=== PATIENT | female | born 1985 | race Caucasian/White ===

== ENCOUNTER 2017-04-10 20:26 | Emergency (ER) | payer OTHER ==
[~2017-04-10] VITALS: Ht 160 cm; Wt 115.7 kg
[2017-04-10 21:12] LABS: BILIRUBIN,URINE NEGATIVE (NEG); GLUCOSE,URINE NEGATIVE (NEG); NITRITE,URINE NEGATIVE (NEG); PH,URINE 6.5; PROTEIN,URINE NEGATIVE (NEG-TRACE); UROBILINOGEN,URINE 0.2 mg/dL (0.2 mg/dL)
[2017-04-10 21:22] LABS: BACTERIA,URINE FEW /HPF (0-FEW); RBC,URINE 0 /HPF (0-2); SQUAMOUS EPITHELIAL CELL,UR FEW /LPF; WBC,URINE OCC /HPF (0-4)
[2017-04-10 21:22] LABS: BASO # 0.1 x10^3/uL (0.0-0.2); BASO % 1 % (0-3); EOS % 4 % (0-3); HEMATOCRIT 41.9 % (36.0-47.0); HEMOGLOBIN 14.3 g/dL (12.0-15.5); LYMPH # 2.7 x10^3/uL (1.0-4.8); LYMPH % 29 % (24-48); MEAN CORPUSCULAR HEMOGLOBIN 29 pg (25-35); MEAN CORPUSCULAR HGB CONC 34 g/dL (31-37); MEAN CORPUSCULAR VOLUME 85 fL (79-100); MONO % 6 % (0-9); NEUT % 60 % (31-73); PLATELET COUNT 239 x10^3/uL (140-400); RED BLOOD COUNT 4.93 x10^6/uL (3.50-5.40); RED CELL DISTRIBUTION WIDTH 14.4 % (11.5-14.5); WHITE BLOOD COUNT 9.3 x10^3/uL (4.0-11.0)
[2017-04-10 21:26] LABS: CALCIUM 9.3 mg/dL (8.5-10.1); CREATININE 0.8 mg/dL (0.6-1.0); GFR 84.8; POTASSIUM 4.1 mmol/L (3.5-5.1)
[2017-04-10] MEDS ORDERED: IV NORMAL SALINE 1000ML BAG 1,000 ML IV ONE (21:30)
[2017-04-10] MEDS ORDERED: ONDANSETRON PF 4 MG/2 ML VIAL. IV ONE (21:30)
[2017-04-10] MEDS ORDERED: diphenhydrAMINE 50 MG/ML VIAL IVP ONE (21:30)
[2017-04-10] MEDS ORDERED: KETOROLAC 15 MG/ML VIAL. IV ONE (21:30)
[2017-04-10 21:31] LABS: ALBUMIN 3.6 g/dL (3.4-5.0); ALBUMIN/GLOBULIN RATIO 0.9 (1.0-1.7); TOTAL BILIRUBIN 0.3 mg/dL (0.2-1.0); TOTAL PROTEIN 7.7 g/dL (6.4-8.2)
[2017-04-10 21:35] LABS: NEG OBC UR NEG; POS OBC UR POS
--- NOTE | 2017-04-10 21:46 | RAD ---
Clinical Indication: Headache Technique: Study is dated April 10, 2017. CT images of the head were obtained from the skull base to the vertex without IV contrast. There are no comparison studies available. One or more of the following individualized dose reduction techniques were utilized for this examination: 1. Automated exposure control 2. Adjustment of the mA and/or kV according to patient size 3. Use of iterative reconstruction technique Findings: The ventricles are normal in size and configuration. There is no hemorrhage, extraaxial collection, mass, or midline shift. There is no large vascular distribution acute infarct. The posterior fossa and brainstem are unremarkable. Orbits are normal. The included paranasal sinuses and mastoid air cells are clear. There is no skull fracture appreciated on bone level images. Impression: No acute intracranial findings. Electronically signed by: Rylan Israel MD (04/10/2017 9:43 PM) [facility]
--- NOTE | 2017-04-10 22:29 | PHYS DOC ---
Past Medical History Past Medical History: Asthma, Other Additional Past Medical Histor: PCS, PTSD, Scoliosism tachycardia during Past Surgical History: Cholecystectomy, , Hysterectomy, Tubal ligation Additional Past Surgical Histo: Partial hysterectomy Alcohol Use: Rarely Drug Use: None Adult General Chief Complaint Chief Complaint: HEADACHE HPI HPI Patient is a 31 year old female who presents to the ER today complaining of a migraine headache. Patient reports she's had one to 2 migraines in the past that she had to come to the hospital for but is never had a CT scan of her head. Patient denies any fevers shakes chills. Patient has any vomiting or diarrhea. Patient reports she is nauseous with a headache. She reports that the headache started earlier today. Patient has any double vision, blurred vision, weakness to her upper or lower extremities, slurring her speech, facial asymmetry. Patient denies any history of hypertension diabetes liver or kidney pals. Patient has had a cholecystectomy, 2, total abdominal hysterectomy. Patient reports she does have a history of asthma and polycystic ovary syndrome. Patient denies any tobacco alcohol or drugs. Patient is allergic to Phenergan. Patient reports that with her migraines she usually takes a he pack to her eyes and ibuprofen as well as Benadryl and usually alleviates her headache however today she tried that without any relief. Review of systems: Constitutional: Denies fever or chills Eyes: Denies change in visual acuity, redness, or eye pain HENT: Denies nasal congestion or sore throat All other review systems are negative except as documented in the history of present illness. Physical exam: Constitutional: Well developed, well nourished, no acute distress, non-toxic appearance. HENT: Normocephalic, atraumatic, bilateral external ears normal, oropharynx moist, no oral exudates, nose normal. Eyes: PERRLA, EOMI, conjunctiva normal, no discharge. Neck: Normal range of motion, no tenderness, supple, no stridor. Patient denies any signs or symptoms O be consistent with meningitis. Cardiovascular:Heart rate regular rhythm, Lungs & Thorax: Bilateral breath sounds clear to auscultation Abdomen: Bowel sounds normal, soft, no tenderness, no masses, no pulsatile masses. Skin: Warm, dry, no erythema, no rash. Back: No tenderness, no CVA tenderness. Extremities: No tenderness, no cyanosis, no clubbing, ROM intact, no edema. Neurologic: Alert and oriented X 3, normal motor function, normal sensory function, no focal deficits noted. Psychologic: Affect normal, judgement normal, mood normal. Assessment and plan. This is a 31-year-old female who presents here today with a migraine headache. Patient's ER workup is been unremarkable. Patient has CT scan of her head since she has never had one before CT scan was read by radiology as no acute disease or process. Patient was given a liter of normal saline as well as Zofran Benadryl and Toradol without any significant improvement. Patient was then given a milligram of Dilaudid IV and she reports the pain is significantly improved. Patient's labs were all within normal limits. Given that the patient' s labs are unremarkable, normal CT and her pain is improved will be discharged home in stable condition and will be instructed to follow-up with her primary care physician for further management of her headaches. Current Medications Current Medications Current Medications Medications (Trade) Dose Ordered Sig/Dario Start Time Stop Time Status Last Admin Dose Admin Diphenhydramine HCl (Benadryl) 50 mg 1X ONCE 04/10/17 21:30 04/10/17 21:31 DC 04/10/17 21:12 50 MG Hydromorphone HCl (Dilaudid) 1 mg 1X ONCE 04/10/17 22:30 04/10/17 22:31 04/10/17 22:00 1 MG Ketorolac Tromethamine (Toradol) 15 mg 1X ONCE 04/10/17 21:30 04/10/17 21:31 DC 04/10/17 21:12 15 MG Ondansetron HCl (Zofran) 4 mg 1X ONCE 04/10/17 21:30 04/10/17 21:31 DC 04/10/17 21:12 4 MG Sodium Chloride 1,000 ml @ 1,000 mls/hr 1X ONCE 04/10/17 21:30 04/10/17 22:29 04/10/17 21:17 1,000 MLS/HR Allergies Allergies Allergies Coded Allergies Type Severity Reaction Last Updated Verified nut - unspecified Allergy Severe 04/10/17 Yes promethazine Allergy Severe 04/10/17 Yes Current Patient Data Vital Signs Vital Signs Date Time Temp Pulse Resp B/P (MAP) Pulse Ox O2 Delivery O2 Flow Rate FiO2 04/10/17 22:00 16 Room Air 04/10/17 21:18 84 143/78 (99) 99 04/10/17 20:41 98.3 98.3 Lab Values Laboratory Tests Test 04/10/17 20:39 04/10/17 21:08 Urine Collection Type Unknown Urine Color Yellow Urine Clarity Clear Urine pH 6.5 Urine Specific [place] 1.010 Urine Protein Negative mg/dL (NEG-TRACE) Urine Glucose (UA) Negative mg/dL (NEG) Urine Ketones (Stick) Negative mg/dL (NEG) Urine Blood Negative (NEG) Urine Nitrite Negative (NEG) Urine Bilirubin Negative (NEG) Urine Urobilinogen Dipstick 0.2 mg/dL (0.2 mg/dL) Urine Leukocyte Esterase Negative (NEG) Urine RBC 0 /HPF (0-2) Urine WBC Occ /HPF (0-4) Urine Squamous Epithelial Cells Few /LPF Urine Bacteria Few /HPF (0-FEW) Urine Test Negative (NEG) White Blood Count 9.3 x10^3/uL (4.0-11.0) Red Blood Count 4.93 x10^6/uL (3.50-5.40) Hemoglobin 14.3 g/dL (12.0-15.5) Hematocrit 41.9 % (36.0-47.0) Mean Corpuscular Volume 85 fL (79-100) Mean Corpuscular Hemoglobin 29 pg (25-35) Mean Corpuscular Hemoglobin Concent 34 g/dL (31-37) Red Cell Distribution Width 14.4 % (11.5-14.5) Platelet Count 239 x10^3/uL (140-400) Neutrophils (%) (Auto) 60 % (31-73) Lymphocytes (%) (Auto) 29 % (24-48) Monocytes (%) (Auto) 6 % (0-9) Eosinophils (%) (Auto) 4 % (0-3) H Basophils (%) (Auto) 1 % (0-3) Neutrophils # (Auto) 5.6 x10^3uL (1.8-7.7) Lymphocytes # (Auto) 2.7 x10^3/uL (1.0-4.8) Monocytes # (Auto) 0.5 x10^3/uL (0.0-1.1) Eosinophils # (Auto) 0.4 x10^3/uL (0.0-0.7) Basophils # (Auto) 0.1 x10^3/uL (0.0-0.2) Sodium Level 140 mmol/L (136-145) Potassium Level 4.1 mmol/L (3.5-5.1) Chloride Level 104 mmol/L (98-107) Carbon Dioxide Level 28 mmol/L (21-32) Anion Gap 8 (6-14) Blood Urea Nitrogen 11 mg/dL (7-20) Creatinine 0.8 mg/dL (0.6-1.0) Estimated GFR (Cockcroft-Gault) 84.8 BUN/Creatinine Ratio 14 (6-20) Glucose Level 106 mg/dL (70-99) H Calcium Level 9.3 mg/dL (8.5-10.1) Total Bilirubin 0.3 mg/dL (0.2-1.0) Aspartate Amino Transferase (AST) 14 U/L (15-37) L Alanine Aminotransferase (ALT) 25 U/L (14-59) Alkaline Phosphatase 81 U/L (46-116) Total Protein 7.7 g/dL (6.4-8.2) Albumin 3.6 g/dL (3.4-5.0) Albumin/Globulin Ratio 0.9 (1.0-1.7) L Laboratory Tests 04/10/17 21:08 Laboratory Tests 04/10/17 21:08 EKG EKG [] Radiology/Procedures Radiology/Procedures [] Course & Med Decision Making Course & Med Decision Making Pertinent Labs and Imaging studies reviewed. (See chart for details) [] Dragon Disclaimer Dragon Disclaimer This electronic medical record was generated, in whole or in part, using a voice recognition dictation system. Departure Departure Impression: Primary Impression: Migraine headache Disposition: 01 HOME, SELF-CARE Condition: IMPROVED Referrals: UNKNOWN PCP NAME (PCP) Patient Instructions: General Headache Without Cause Additional Instructions: You were seen in the ER today for your headache. Your workup in ER has been unremarkable. Please make an appointment to follow-up with her doctor within 1- 2 days for reevaluation if her headache is persistent. FAITH LYNN MD Apr 10, 2017 22:29
[2017-04-10] MEDS ORDERED: HYDROmorphone 2 MG/ML VIAL IV ONE (22:30)
[2017-04-10 22:38] VITALS: BP 113/51
== END 2017-04-10 22:39 | disposition home or self-care (01) ==
LOC: ER 20:26
DX: G43.909 Migraine, unspecified, not intractable, without status migrainosus (principal); J45.909 Unspecified asthma, uncomplicated; F43.10 Post-traumatic stress disorder, unspecified; Z91.018 Allergy to other foods; Z88.8 Allergy status to other drugs, medicaments and biological substances
CPT/HCPCS: 36415; 70450; 80053; 81001; 81025; 85025; 96361; 96374; 96375; 99285; J1170; J1200; J1885; J2405; J7030

== ENCOUNTER 2017-04-23 11:06 | Emergency (ER) | payer OTHER ==
[~2017-04-23] VITALS: Ht 152.4 cm; Wt 115.7 kg
--- NOTE | 2017-04-23 11:41 | PHYS DOC ---
Past Medical History Past Medical History: Asthma, Other Additional Past Medical Histor: PCS, PTSD, Scoliosism tachycardia during Past Surgical History: Cholecystectomy, , Hysterectomy, Tubal ligation Additional Past Surgical Histo: Partial hysterectomy Alcohol Use: Rarely Drug Use: None Adult General Chief Complaint Chief Complaint: HEADACHE HPI HPI Patient is a 31 year old female presents to the emergency department stating that she was seen here on 04/10 for migraine headache in which she was provided with Dilaudid for her headache. Patient states that she followed up with her primary care physician yesterday and was provided with Imitrex. She states that she's been taking the Imitrex as prescribed. Patient states there is been no relief of her headache. Patient states that she has had some blurred vision with nausea denies any vomiting. She states that her neck is stiff however she is able to move it in all directions. She denies any fever or chills. Patient states that when she does try to move her head and tender head down she feels as though it's pointing on the left side of her upper back and neck area. She denies any injury or trauma. She does state that she has photophobia. Review of Systems Review of Systems Constitutional: Denies fever or chills [] Eyes: Denies change in visual acuity, redness, or eye pain [] HENT: Denies nasal congestion or sore throat [] Respiratory: Denies cough or shortness of breath [] Cardiovascular: No additional information not addressed in HPI [] GI: Denies abdominal pain, nausea, vomiting, bloody stools or diarrhea [] : Denies dysuria or hematuria [] Musculoskeletal: Denies back pain or joint pain [] Integument: Denies rash or skin lesions [] Neurologic: headache, denies focal weakness or sensory changes [] Endocrine: Denies polyuria or polydipsia [] Current Medications Current Medications Current Medications Medications (Trade) Dose Ordered Sig/Dario Start Time Stop Time Status Last Admin Dose Admin Cyclobenzaprine HCl (Flexeril) 10 mg 1X ONCE 04/23/17 11:45 04/23/17 11:46 DC 04/23/17 12:03 10 MG Diphenhydramine HCl (Benadryl) 25 mg 1X ONCE 04/23/17 11:45 04/23/17 11:46 DC 04/23/17 12:04 25 MG Ketorolac Tromethamine (Toradol) 30 mg 1X ONCE 04/23/17 11:45 04/23/17 11:46 DC 04/23/17 12:02 30 MG Metoclopramide HCl (Reglan) 10 mg 1X ONCE 04/23/17 11:45 04/23/17 11:46 DC 04/23/17 12:03 10 MG Allergies Allergies Allergies Coded Allergies Type Severity Reaction Last Updated Verified nut - unspecified Allergy Severe 04/10/17 Yes promethazine Allergy Severe 04/10/17 Yes Physical Exam Physical Exam Constitutional: Well developed, well nourished, no acute distress, non-toxic appearance. [] HENT: Normocephalic, atraumatic, bilateral external ears normal, oropharynx moist, no oral exudates, nose normal. [] Eyes: PERRLA, EOMI, conjunctiva normal, no discharge. [] Neck: Normal range of motion, no tenderness, supple, no stridor. [] Cardiovascular:Heart rate regular rhythm, no murmur [] Lungs & Thorax: Bilateral breath sounds clear to auscultation [] Skin: Warm, dry, no erythema, no rash. [] Back: Tenderness noted on the left side of the neck and upper back area. Extremities: No tenderness, no cyanosis, no clubbing, ROM intact, no edema. [] Neurologic: Alert and oriented X 3, normal motor function, normal sensory function, no focal deficits noted. Patient is able to bend her head down and turned her head from left to right in move her head backwards with minimal discomfort noted. Stroke scale 0. Patient with equal launch operator bilaterally with equal strength noted. Psychologic: Affect normal, judgement normal, mood normal. [] Current Patient Data Vital Signs Vital Signs Date Time Temp Pulse Resp B/P (MAP) Pulse Ox O2 Delivery O2 Flow Rate FiO2 04/23/17 11:17 98.1 95 18 121/85 (97) 99 Room Air 98.1 Lab Values Laboratory Tests Test 04/23/17 11:55 White Blood Count 8.1 x10^3/uL (4.0-11.0) Red Blood Count 5.02 x10^6/uL (3.50-5.40) Hemoglobin 14.4 g/dL (12.0-15.5) Hematocrit 43.2 % (36.0-47.0) Mean Corpuscular Volume 86 fL (79-100) Mean Corpuscular Hemoglobin 29 pg (25-35) Mean Corpuscular Hemoglobin Concent 33 g/dL (31-37) Red Cell Distribution Width 14.3 % (11.5-14.5) Platelet Count 220 x10^3/uL (140-400) Neutrophils (%) (Auto) 62 % (31-73) Lymphocytes (%) (Auto) 24 % (24-48) Monocytes (%) (Auto) 6 % (0-9) Eosinophils (%) (Auto) 8 % (0-3) H Basophils (%) (Auto) 1 % (0-3) Neutrophils # (Auto) 5.0 x10^3uL (1.8-7.7) Lymphocytes # (Auto) 1.9 x10^3/uL (1.0-4.8) Monocytes # (Auto) 0.5 x10^3/uL (0.0-1.1) Eosinophils # (Auto) 0.6 x10^3/uL (0.0-0.7) Basophils # (Auto) 0.1 x10^3/uL (0.0-0.2) Sodium Level 141 mmol/L (136-145) Potassium Level 4.0 mmol/L (3.5-5.1) Chloride Level 103 mmol/L (98-107) Carbon Dioxide Level 29 mmol/L (21-32) Anion Gap 9 (6-14) Blood Urea Nitrogen 11 mg/dL (7-20) Creatinine 0.9 mg/dL (0.6-1.0) Estimated GFR (Cockcroft-Gault) 74.0 BUN/Creatinine Ratio 12 (6-20) Glucose Level 89 mg/dL (70-99) Calcium Level 9.3 mg/dL (8.5-10.1) Total Bilirubin 0.5 mg/dL (0.2-1.0) Aspartate Amino Transferase (AST) 16 U/L (15-37) Alanine Aminotransferase (ALT) 31 U/L (14-59) Alkaline Phosphatase 93 U/L (46-116) Total Protein 8.1 g/dL (6.4-8.2) Albumin 3.9 g/dL (3.4-5.0) Albumin/Globulin Ratio 0.9 (1.0-1.7) L Laboratory Tests 04/23/17 11:55 Laboratory Tests 04/23/17 11:55 EKG EKG [] Radiology/Procedures Radiology/Procedures [][facility] [address] [place] [address] IMAGING REPORT Signed PATIENT: DEISY CANDELARIO ACCOUNT: [id number] : 1985 LOCATION: ER AGE: 31 SEX: F EXAM STATUS: REG ER ORD. PHYSICIAN: NARCISA PHAN APRN REASON: head ache, some blurred vision PROCEDURE: CT HEAD WO CONTRAST CT of the head without contrast, 04/23/2017: History: Headache Comparison is made to a study from 04/10/2017. The ventricles are within normal limits in size. There is no shift of the midline structures. There is no evidence of acute intracranial hemorrhage or mass effect. Mucosal thickening in the sphenoid sinuses has worsened with nearly complete opacification of the right sphenoid sinus. There is mucosal thickening and fluid in both maxillary sinuses. There is now mild mucosal thickening in both ethmoid sinuses and the right frontal sinus. IMPRESSION: 1. No acute intracranial abnormality is detected. 2. Moderate bilateral paranasal sinusitis has developed. PQRS Compliance Statement: One or more of the following individualized dose reduction techniques were utilized for this examination: 1. Automated exposure control 2. Adjustment of the mA and/or kV according to patient size 3. Use of iterative reconstruction technique DICTATED and SIGNED BY: JACI VICTOR MD DATE: 04/23/17 1201 CC: NARCISA PHAN APRN; NON,STAFF; UNKNOWN PCP NAME ~ Course & Med Decision Making Course & Med Decision Making Pertinent Labs and Imaging studies reviewed. (See chart for details) CT scan of the head will be repeated as this headache appears to be different than the one she had on the previous visit, patient will have a CBC, CMP obtained. She'll be provided with IV medications such as Toradol, Reglan, Benadryl, and by mouth medication Flexeril. 1256 CT scan of the head was negative CBC, CMP was negative. Patient states that her headache is better. She'll be discharged home with a prescription for Flexeril with recommendations that this medication will cause drowsiness don't take any be alert and oriented. Recommended that she rest in quiet dark cool environment to help with her headache. Recommended avoiding watching TV, computer devices or any type of laptop devices as well. Patient will be discharged home in stable condition signs and symptoms to return back to emergency department has been provided. All questions and concerns been answered at patient's bedside. [] Dragon Disclaimer Dragon Disclaimer This electronic medical record was generated, in whole or in part, using a voice recognition dictation system. Departure Departure Impression: Primary Impression: Headache, tension-type Disposition: HOME, SELF-CARE Condition: STABLE Referrals: UNKNOWN PCP NAME (PCP) Patient Instructions: Tension Headache, [id number] Additional Instructions: Activity as tolerated. Avoid watching TV or using any laptop computer devices this would include text messaging or use of cell phone's. Rest in a quiet dark environment. Medications as prescribed. Flexeril will cause drowsiness do not take any be alert and oriented. Follow-up to primary care physician in the next 5-7 days. Return back to emergency prior signs symptoms of become worse. Scripts Cyclobenzaprine Hcl (CYCLOBENZAPRINE HCL) 10 Mg Tablet 1 TAB PO TID Y for MUSCLE SPASMS, #30 TAB Prov: NARCISA PHAN APRN 04/23/17 Problem Qualifiers Primary Impression: Headache, tension-type Headache chronicity pattern: unspecified pattern NARCISA PHAN APRN Apr 23, 2017 11:41
[2017-04-23] MEDS ORDERED: diphenhydrAMINE 50 MG/ML VIAL IVP ONE (11:45)
[2017-04-23] MEDS ORDERED: CYCLOBENZAPRINE 10 MG TABLET. PO ONE (11:45)
[2017-04-23] MEDS ORDERED: KETOROLAC 30 MG/ML INJ. IV ONE (11:45)
[2017-04-23] MEDS ORDERED: METOCLOPRAMIDE HCL 10 MG/2 ML VIAL. IV ONE (11:45)
--- NOTE | 2017-04-23 12:05 | RAD ---
CT of the head without contrast, 04/23/2017: History: Headache Comparison is made to a study from 04/10/2017. The ventricles are within normal limits in size. There is no shift of the midline structures. There is no evidence of acute intracranial hemorrhage or mass effect. Mucosal thickening in the sphenoid sinuses has worsened with nearly complete opacification of the right sphenoid sinus. There is mucosal thickening and fluid in both maxillary sinuses. There is now mild mucosal thickening in both ethmoid sinuses and the right frontal sinus. IMPRESSION: 1. No acute intracranial abnormality is detected. 2. Moderate bilateral paranasal sinusitis has developed. PQRS Compliance Statement: One or more of the following individualized dose reduction techniques were utilized for this examination: 1. Automated exposure control 2. Adjustment of the mA and/or kV according to patient size 3. Use of iterative reconstruction technique
[2017-04-23 12:12] LABS: BASO # 0.1 x10^3/uL (0.0-0.2); BASO % 1 % (0-3); EOS % 8 % (0-3); HEMATOCRIT 43.2 % (36.0-47.0); HEMOGLOBIN 14.4 g/dL (12.0-15.5); LYMPH # 1.9 x10^3/uL (1.0-4.8); LYMPH % 24 % (24-48); MEAN CORPUSCULAR HEMOGLOBIN 29 pg (25-35); MEAN CORPUSCULAR HGB CONC 33 g/dL (31-37); MEAN CORPUSCULAR VOLUME 86 fL (79-100); MONO % 6 % (0-9); NEUT % 62 % (31-73); PLATELET COUNT 220 x10^3/uL (140-400); RED BLOOD COUNT 5.02 x10^6/uL (3.50-5.40); RED CELL DISTRIBUTION WIDTH 14.3 % (11.5-14.5); WHITE BLOOD COUNT 8.1 x10^3/uL (4.0-11.0)
[2017-04-23 12:16] LABS: CALCIUM 9.3 mg/dL (8.5-10.1); CREATININE 0.9 mg/dL (0.6-1.0)
[2017-04-23 12:22] LABS: ALBUMIN 3.9 g/dL (3.4-5.0); ALBUMIN/GLOBULIN RATIO 0.9 (1.0-1.7); TOTAL BILIRUBIN 0.5 mg/dL (0.2-1.0); TOTAL PROTEIN 8.1 g/dL (6.4-8.2)
[2017-04-23] MEDS ORDERED: CYCL10TA2 PO (12:59)
[2017-04-23 13:00] VITALS: BP 89/51
== END 2017-04-23 13:05 | disposition home or self-care (01) ==
LOC: ER 11:06
DX: G44.209 Tension-type headache, unspecified, not intractable (principal); G43.909 Migraine, unspecified, not intractable, without status migrainosus; F43.10 Post-traumatic stress disorder, unspecified; J45.909 Unspecified asthma, uncomplicated; E28.2 Polycystic ovarian syndrome; Z88.8 Allergy status to other drugs, medicaments and biological substances; Z91.018 Allergy to other foods
CPT/HCPCS: 36415; 70450; 80053; 85025; 96374; 96375; 99285; J1200; J1885; J2765

== ENCOUNTER 2017-08-12 03:42 | Emergency (ER) | payer OTHER ==
[2017-08-12] MEDS: TOBRAMYCIN 0.3% OPHTH SOLUTION 5ML BOTTLE. OU ×2 (04:17)
[2017-08-12] MEDS: KETOROLAC 60 MG/2 ML INJ. IM ×2 (04:17)
== END 2017-08-12 04:21 | disposition home or self-care (01) ==
LOC: ER 03:42
DX: H10.33 Unspecified acute conjunctivitis, bilateral (principal); G43.009 Migraine without aura, not intractable, without status migrainosus; J45.909 Unspecified asthma, uncomplicated; F43.10 Post-traumatic stress disorder, unspecified; Z88.8 Allergy status to other drugs, medicaments and biological substances; Z91.018 Allergy to other foods
CPT/HCPCS: 96372; 99283-25; J1885

== ENCOUNTER 2018-01-22 15:45 | Emergency (ER) | payer OTHER ==
[2018-01-22] MEDS: KETOROLAC 60 MG/2 ML INJ. IM (16:25)
[2018-01-22] MEDS: oxyCODONE IR 5 MG TABLET PO (16:25)
[2018-01-22] MEDS: BACLOFEN 10 MG TABLET. PO (16:25)
== END 2018-01-22 17:06 | disposition home or self-care (01) ==
LOC: ER 15:45
DX: M54.5 Low back pain (principal); M54.6 Pain in thoracic spine; J45.909 Unspecified asthma, uncomplicated; F43.10 Post-traumatic stress disorder, unspecified; Z98.51 Tubal ligation status; Z90.49 Acquired absence of other specified parts of digestive tract; Z90.711 Acquired absence of uterus with remaining cervical stump; Z88.5 Allergy status to narcotic agent; Z88.8 Allergy status to other drugs, medicaments and biological substances; Z91.018 Allergy to other foods
CPT/HCPCS: 72100; 96372; 99284-25; J1885

== ENCOUNTER 2018-04-08 18:31 | Emergency (ER) | payer OTHER ==
[~2018-04-08] VITALS: Ht 160 cm; Wt 81.6 kg
[~2018-04-08 18:31] MED LIST: BACL20TA PO; CYCL10TA2 PO; ONDA4TAB10 PO; OXYC5CAP PO
[2018-04-08 18:36] VITALS: BP 117/72
[2018-04-08] MEDS ORDERED: IV NORMAL SALINE 1000ML BAG 1,000 ML IV ONE (19:00)
--- NOTE | 2018-04-08 19:09 | PHYS DOC ---
Past Medical History Past Medical History: Asthma, Other Additional Past Medical Histor: PCOS, PTSD, Scoliosis, tachycardia during Past Surgical History: Cholecystectomy, , Tubal ligation Additional Past Surgical Histo: Right Salphin-oophorectomy Alcohol Use: Rarely Drug Use: None Adult General Chief Complaint Chief Complaint: SEIZURE HPI HPI 32-year-old female presents via EMS with report of seizure-like activity which occurred just prior to arrival. Patient remembers she was sitting on the couch at her home with children getting ready to eat. Subsequently remembers waking up again on the couch with the paramedics around her. Denies loss of bowel/ bladder. Patient does report a previous episode when she was 18 which was allegedly secondary to accidentally combining to different types of medication including Tylenol #3 and Phenergan. Recent denies any new medications. Denies trauma. Denies fever or chills. Patient does report a headache primarily to the left frontal region. Patient denies . Reports menstrual period on 2017. Patient also has a history of right-sided oophorectomy and also a prior tubal ligation. Denies drug or alcohol abuse. Review of Systems Review of Systems Constitutional: Denies fever or chills; reports generalized malaise Eyes: Denies change in visual acuity, redness, or eye pain [] HENT: Denies nasal congestion or sore throat [] Respiratory: Denies cough or shortness of breath [] Cardiovascular: Denies chest pain or palpitations GI: Denies abdominal pain, nausea, vomiting, or diarrhea [] : Denies dysuria or hematuria [] Musculoskeletal: Denies back pain or joint pain [] Integument: Denies rash or skin lesions [] Neurologic: Denies headache, focal weakness or sensory changes [] Complete systems were reviewed and found to be within normal limits, except as documented in this note. Current Medications Current Medications Current Medications Medications (Trade) Dose Ordered Sig/Dario Start Time Stop Time Status Last Admin Dose Admin Acetaminophen/ Butalbital/ Caffeine (Fioricet) 2 tab 1X ONCE 04/08/18 22:00 04/08/18 22:01 DC 04/08/18 21:42 2 TAB Dexamethasone Sodium Phosphate (Decadron) 10 mg 1X ONCE 04/08/18 19:00 04/08/18 19:01 DC 04/08/18 20:10 10 MG Diphenhydramine HCl (Benadryl) 25 mg 1X ONCE 04/08/18 19:00 04/08/18 19:01 DC 04/08/18 20:11 25 MG Ketorolac Tromethamine (Toradol 15mg Vial) 15 mg 1X ONCE 04/08/18 22:00 04/08/18 22:01 DC 04/08/18 21:45 15 MG Ondansetron HCl (Zofran) 4 mg 1X ONCE 04/08/18 19:00 04/08/18 19:01 DC 04/08/18 20:10 4 MG Sodium Chloride 1,000 ml @ 1,000 mls/hr 1X ONCE 04/08/18 19:00 04/08/18 19:59 Cancel Allergies Allergies Allergies Coded Allergies Type Severity Reaction Last Updated Verified nut - unspecified Allergy Severe 04/10/17 Yes promethazine Allergy Severe 04/10/17 Yes morphine Allergy Intermediate 04/08/18 Yes Physical Exam Physical Exam Constitutional: Well developed, well nourished, no acute distress, non-toxic appearance. [] HENT: Normocephalic, atraumatic, oropharynx moist, no tongue abnormalities noted Eyes: PERRL, EOMI, conjunctiva normal, no discharge. [] Neck: Normal range of motion, no midline tenderness, supple, no meningeal signs Cardiovascular: Heart rate tachycardic, no murmur [] Lungs & Thorax: Bilateral breath sounds clear to auscultation; no wheezes or rails Abdomen: Soft, no tenderness Skin: Warm, dry, no erythema, no rash. [] Extremities: No tenderness, ROM intact, no edema. [] Neurologic: Alert and oriented X 3, normal motor function, normal sensory function, no focal deficits noted, cerebellar function intact Psychologic: Affect normal, judgement normal, mood normal. [] Current Patient Data Vital Signs Vital Signs Date Time Temp Pulse Resp B/P (MAP) Pulse Ox O2 Delivery O2 Flow Rate FiO2 04/08/18 18:36 98.7 108 16 117/72 (87) 99 Room Air 98.7 Lab Values Laboratory Tests Test 04/08/18 18:35 04/08/18 18:37 04/08/18 19:25 04/08/18 19:30 Lactic Acid Level 1.9 mmol/L (0.4-2.0) White Blood Count 6.1 x10^3/uL (4.0-11.0) Red Blood Count 3.93 x10^6/uL (3.50-5.40) Hemoglobin 12.1 g/dL (12.0-15.5) Hematocrit 35.6 % (36.0-47.0) L Mean Corpuscular Volume 91 fL (79-100) Mean Corpuscular Hemoglobin 31 pg (25-35) Mean Corpuscular Hemoglobin Concent 34 g/dL (31-37) Red Cell Distribution Width 14.7 % (11.5-14.5) H Platelet Count 207 x10^3/uL (140-400) Neutrophils (%) (Auto) 57 % (31-73) Lymphocytes (%) (Auto) 31 % (24-48) Monocytes (%) (Auto) 8 % (0-9) Eosinophils (%) (Auto) 4 % (0-3) H Basophils (%) (Auto) 1 % (0-3) Neutrophils # (Auto) 3.5 x10^3uL (1.8-7.7) Lymphocytes # (Auto) 1.9 x10^3/uL (1.0-4.8) Monocytes # (Auto) 0.5 x10^3/uL (0.0-1.1) Eosinophils # (Auto) 0.2 x10^3/uL (0.0-0.7) Basophils # (Auto) 0.0 x10^3/uL (0.0-0.2) Sodium Level 142 mmol/L (136-145) Potassium Level 4.0 mmol/L (3.5-5.1) Chloride Level 105 mmol/L (98-107) Carbon Dioxide Level 25 mmol/L (21-32) Anion Gap 12 (6-14) Blood Urea Nitrogen 10 mg/dL (7-20) Creatinine 1.0 mg/dL (0.6-1.0) Estimated GFR (Cockcroft-Gault) 65.1 BUN/Creatinine Ratio 10 (6-20) Glucose Level 86 mg/dL (70-99) Calcium Level 8.7 mg/dL (8.5-10.1) Magnesium Level 2.1 mg/dL (1.8-2.4) Total Bilirubin 0.3 mg/dL (0.2-1.0) Aspartate Amino Transferase (AST) 16 U/L (15-37) Alanine Aminotransferase (ALT) 44 U/L (14-59) Alkaline Phosphatase 80 U/L (46-116) Total Protein 7.1 g/dL (6.4-8.2) Albumin 3.5 g/dL (3.4-5.0) Albumin/Globulin Ratio 1.0 (1.0-1.7) Ethyl Alcohol Level < 10 mg/dL (0-10) Urine Collection Type Unknown Urine Color Yellow Urine Clarity Clear Urine pH 6.0 Urine Specific [place] 1.015 Urine Protein Negative mg/dL (NEG-TRACE) Urine Glucose (UA) Negative mg/dL (NEG) Urine Ketones (Stick) Negative mg/dL (NEG) Urine Blood Negative (NEG) Urine Nitrite Negative (NEG) Urine Bilirubin Negative (NEG) Urine Urobilinogen Dipstick 1.0 mg/dL (0.2 mg/dL) Urine Leukocyte Esterase Small (NEG) Urine RBC 0 /HPF (0-2) Urine WBC 5-10 /HPF (0-4) Urine Squamous Epithelial Cells Many /LPF Urine Bacteria Many /HPF (0-FEW) Urine Mucus Marked /LPF Urine Opiates Screen Neg (NEG) Urine Methadone Screen Neg (NEG) Urine Barbiturates Neg (NEG) Urine Phencyclidine Screen Neg (NEG) Urine Amphetamine/Methamphetamine Neg (NEG) Urine Benzodiazepines Screen Pos (NEG) Urine Cocaine Screen Neg (NEG) Urine Cannabinoids Screen Neg (NEG) Urine Ethyl Alcohol Neg (NEG) POC Urine HCG, Qualitative Hcg negative (Negative) Laboratory Tests 04/08/18 18:37 Laboratory Tests 04/08/18 18:37 Microbiology 04/08/18 Urine Culture - Final, Complete 04/08/18 Urine Culture Result 1 (OVIDIO) - Final, Complete EKG EKG @1842 sinus tachycardia at 103bpm, No ST elevation, QRS 86ms, QT/QTc 344/453ms Radiology/Procedures Radiology/Procedures PROCEDURE: CT HEAD WO CONTRAST Exam performed: CT scan of the head without contrast. Date of Service: 04/08/18. Comparison: None available. Clinical History: Seizure like activity. Technique: Helical acquisitions are obtained from the foramen magnum to the vertex without intravenous administration of contrast. Findings: The ventricles are midline without evidence of dilatation. Normal pop-white differentiation is maintained. There is no extra axial fluid collection, intraparenchymal hemorrhage or mass lesion. The visualized portions of the orbits, paranasal sinuses and the mastoid air cells appear clear. The calvarium is intact. Impression: 1. No acute intracranial process detected. PQRS Compliance Statement: One or more of the following individualized dose reduction techniques were utilized for this examination: 1. Automated exposure control 2. Adjustment of the mA and/or kV according to patient size 3. Use of iterative reconstruction technique Electronically signed by: Adele Encinas MD (04/08/2018 8:58 PM) [facility] Course & Med Decision Making Course & Med Decision Making Pertinent Labs and Imaging studies reviewed. (See chart for details) Patient presents with history of present illness concerning for possible seizure -like activity. Patient currently neurologically intact. No loss of bladder reported. Patient reportedly was slightly confused upon EMS arrival. Physical exam unremarkable. No tongue wounds noted. Patient neurologically intact. Labs obtained and posted to chart. EKG stable. CT head without acute process. Headache addressed. IVF hydration given,. Patient stable for discharge with outpatient follow-up with PCP/neurologist. Neurology referral provided. Discussed findings and plan with patient and family , who acknowledge understanding and agreement. Dragon Disclaimer Dragon Disclaimer This electronic medical record was generated, in whole or in part, using a voice recognition dictation system. Departure Departure Impression: Primary Impression: Seizure-like activity Additional Impression: Headache Disposition: 01 HOME, SELF-CARE Condition: STABLE Referrals: UNKNOWN PCP NAME (PCP) JANINE CASAS MD Patient Instructions: Headache, FAQs, Seizure, Adult, [id number] Additional Instructions: You must refrain from driving until you have been seizure free for 6 months or until cleared by your neurologist/family physician. Scripts Butalb/Acetaminophen/Caffeine ([id number] 50-325-40) 1 Each Tablet 1 EACH PO Q6HRS PRN for HEADACHE, #14 TAB Prov: IZABEL ANGELA DO 04/08/18 Ondansetron (ZOFRAN ODT) 4 Mg Tab.rapdis 4 MG PO Q6HRS PRN for NAUSEA/VOMITING, #14 TAB Prov: IZABEL ANGELA DO 04/08/18 Problem Qualifiers Additional Impression: Headache Headache type: unspecified Headache chronicity pattern: unspecified pattern Intractability: intractable Qualified Codes: R51 - Headache IZABEL ANGELA DO Apr 08, 2018 19:09
[2018-04-08 19:10] LABS: BASO % 1 % (0-3); EOS # 0.2 x10^3/uL (0.0-0.7); EOS % 4 % (0-3); HEMATOCRIT 35.6 % (36.0-47.0); HEMOGLOBIN 12.1 g/dL (12.0-15.5); LYMPH # 1.9 x10^3/uL (1.0-4.8); LYMPH % 31 % (24-48); MEAN CORPUSCULAR HEMOGLOBIN 31 pg (25-35); MEAN CORPUSCULAR HGB CONC 34 g/dL (31-37); MEAN CORPUSCULAR VOLUME 91 fL (79-100); MONO # 0.5 x10^3/uL (0.0-1.1); MONO % 8 % (0-9); NEUT # 3.5 x10^3uL (1.8-7.7); NEUT % 57 % (31-73); PLATELET COUNT 207 x10^3/uL (140-400); RED BLOOD COUNT 3.93 x10^6/uL (3.50-5.40); RED CELL DISTRIBUTION WIDTH 14.7 % (11.5-14.5); WHITE BLOOD COUNT 6.1 x10^3/uL (4.0-11.0)
[2018-04-08 19:28] LABS: CALCIUM 8.7 mg/dL (8.5-10.1); GFR 65.1
[2018-04-08 19:34] LABS: ALBUMIN 3.5 g/dL (3.4-5.0); TOTAL PROTEIN 7.1 g/dL (6.4-8.2)
[2018-04-08 19:35] LABS: MAGNESIUM 2.1 mg/dL (1.8-2.4); TOTAL BILIRUBIN 0.3 mg/dL (0.2-1.0)
[2018-04-08 19:38] LABS: BILIRUBIN,URINE NEGATIVE (NEG); CLARITY,URINE CLEAR; COLOR,URINE YELLOW; NITRITE,URINE NEGATIVE (NEG); PROTEIN,URINE NEGATIVE (NEG-TRACE)
[2018-04-08 19:43] LABS: BARBITURATES NEG (NEG); BENZODIAZEPINES POS (NEG); CANNABINOIDS NEG (NEG); COCAINE NEG (NEG); METHADONE NEG (NEG); OPIATES NEG (NEG); PHENCYCLIDINE NEG (NEG)
[2018-04-08 19:45] LABS: AMPHETAMINE/METHAMPHETAMINE NEG (NEG)
[2018-04-08 19:48] LABS: BACTERIA,URINE MANY /HPF (0-FEW); RBC,URINE 0 /HPF (0-2); SQUAMOUS EPITHELIAL CELL,UR MANY /LPF
[2018-04-08] MEDS: ONDANSETRON PF 4 MG/2 ML VIAL. IV ONE (20:10)
[2018-04-08] MEDS: DEXAMETHASONE SOD PHOS 20 MG/5 ML VIAL. IV ONE (20:10)
[2018-04-08] MEDS: IV NORMAL SALINE 1000ML BAG 1,000 ML IV ONE (20:11)
[2018-04-08] MEDS: diphenhydrAMINE 50 MG/ML VIAL IVP ONE (20:11)
--- NOTE | 2018-04-08 21:02 | RAD ---
Exam performed: CT scan of the head without contrast. Date of Service: 04/08/18. Comparison: None available. Clinical History: Seizure like activity. Technique: Helical acquisitions are obtained from the foramen magnum to the vertex without intravenous administration of contrast. Findings: The ventricles are midline without evidence of dilatation. Normal pop-white differentiation is maintained. There is no extra axial fluid collection, intraparenchymal hemorrhage or mass lesion. The visualized portions of the orbits, paranasal sinuses and the mastoid air cells appear clear. The calvarium is intact. Impression: 1. No acute intracranial process detected. PQRS Compliance Statement: One or more of the following individualized dose reduction techniques were utilized for this examination: 1. Automated exposure control 2. Adjustment of the mA and/or kV according to patient size 3. Use of iterative reconstruction technique Electronically signed by: Adele Encinas MD (04/08/2018 8:58 PM) [facility]
[2018-04-08] MEDS ORDERED: ONDA4TAB10 PO (21:34)
[2018-04-08] MEDS ORDERED: BUTA1TAB23 PO (21:34)
[2018-04-08] MEDS: BUTALB/APAP/CAFEIN 50/325/40MG TABLET. PO ONE (21:42)
[2018-04-08] MEDS: KETOROLAC 15 MG/ML VIAL. IV ONE (21:45)
--- NOTE | 2018-04-08 23:37 | EKG ---
[facility] [address] [place] [address] Test Date: 2018-04-08 Test Time: 17:38:23 Pat Name: DEISY CANDELARIO Department: Room: Gender: F [employer]st: : 1985 Requested By: IZABEL ANGELA Order Number: [id number] Reading MD: Ace Rivera Measurements Intervals [place] Rate: 83 P: 38 [place]: 160 QRS: -20 QRSD: 80 T: 41 QT: 368 QTc: 433 Interpretive Statements SINUS RHYTHM LEFTWARD AXIS Electronically Signed On 04-13-2018 11:52:14 CDT by Ace Rivera
== END 2018-04-08 22:18 | disposition home or self-care (01) ==
LOC: ER 18:31
DX: R56.9 Unspecified convulsions (principal); R51 Headache; J45.909 Unspecified asthma, uncomplicated; F43.10 Post-traumatic stress disorder, unspecified; Z88.8 Allergy status to other drugs, medicaments and biological substances; Z88.5 Allergy status to narcotic agent; Z91.018 Allergy to other foods
CPT/HCPCS: 36415; 70450; 80053; 80307; 81001; 81025; 83605; 83735; 85025; 87086; 93005; 96374; 96375; 99285; G0480; J1100; J1200; J1885; J2405; J7030; G0479

== ENCOUNTER → 2018-06-17 | Outpatient (CLI) | payer OTHER ==
[~2018-06-17] MED LIST changes: +BUTA1TAB23 PO; +GADOBUTROL 7.5 MMOL/7.5 ML VIAL IV ONE
--- NOTE | 2018-06-17 13:03 | KCIC ---
MRI of the Brain without and with Contrast 06/17/2018 Clinical History: Seizures since March of this year. Technique: Unenhanced T1-weighted sagittal and axial and FLAIR, T2-weighted , gradient echo and diffusion-weighted axial images of the brain were obtained. Additionally thin section FLAIR and T2-weighted coronal images through the temporal lobes were obtained After the intravenous administration of 7.5 cc of Gadavist, enhanced T1-weighted axial and coronal images of the brain were obtained. Findings: Comparison is made to the patient's CT scan of the head dated 04/08/2018. The ventricles and sulci are within normal limits in size and configuration. No area of abnormal signal intensity is seen involving the brain parenchyma. No abnormal area of contrast enhancement is seen. No extra-axial fluid collection is noted. There is no MRI evidence of acute ischemia/infarction. Mild to moderate mucosal thickening is seen throughout the paranasal sinuses. There is a minimal left mastoid effusion. Normal flow voids are seen within the major vascular structures surrounding the brain parenchyma. Impression: 1. Negative MRI of the brain. 2. Mild paranasal sinus and mastoid disease. Electronically signed by: Jaiden Anglin MD (06/17/2018 1:00 PM) [facility]
== END | disposition home or self-care (01) ==
LOC: KCIC MRI 08:48
PROVIDERS: ATTEND Psychiatry & Neurology Neurology with Special Qualifications in Child Neurology
DX: G40.309 Generalized idiopathic epilepsy and epileptic syndromes, not intractable, without status epilepticus (principal); J45.909 Unspecified asthma, uncomplicated
CPT/HCPCS: 70553; A9585

== ENCOUNTER → 2018-07-03 | Outpatient (CLI) | payer OTHER ==
[~2018-07-03] MED LIST changes: -GADOBUTROL 7.5 MMOL/7.5 ML VIAL IV ONE
--- NOTE | 2018-07-04 12:01 | EEG ---
DATE OF SERVICE: 07/03/2018 ELECTROENCEPHALOGRAM NUMBER: [id number]. 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 DESCRIPTION: This is a digital study. Electrodes are placed according to the international 10-20 system. Bipolar and referential montages are available. Activation procedures typically include hyperventilation and intermittent photic stimulation. INTERPRETATION: The waking background consists of 9-10 Hz, 50-100 microvolt activity symmetrically distributed over parietooccipital regions and reactive to eye opening. Hyperventilation and intermittent photic stimulation are noncontributory. Stage 1 sleep is achieved with normal electroencephalogram patterns. IMPRESSION: This electroencephalogram with the patient awake and asleep is within normal limits. There is no focal, paroxysmal, or epileptiform activity. Thank you for letting us help with the patient's care. JANINE CASAS MD DR: ROCIO/danny JOB#: [id number] / [id number] JENNIFER Joyner DO
== END | disposition home or self-care (01) ==
LOC: RT 08:56
PROVIDERS: ATTEND Psychiatry & Neurology Neurology with Special Qualifications in Child Neurology
DX: G40.409 Other generalized epilepsy and epileptic syndromes, not intractable, without status epilepticus (principal)
CPT/HCPCS: 95816

== ENCOUNTER 2018-10-10 14:37 | Emergency (ER) | payer OTHER ==
[~2018-10-10] VITALS: Ht 160 cm; Wt 88.0 kg
[2018-10-10] MEDS ORDERED: METOCLOPRAMIDE HCL 10 MG/2 ML VIAL. IV ONE (15:15)
[2018-10-10] MEDS ORDERED: DEXAMETHASONE SOD PHOS 20 MG/5 ML VIAL. IV ONE (15:15)
[2018-10-10] MEDS ORDERED: diphenhydrAMINE 50 MG/ML VIAL IVP ONE (15:15)
[2018-10-10] MEDS ORDERED: IV NORMAL SALINE 1000ML BAG 1,000 ML IV ONE (15:15)
--- NOTE | 2018-10-10 15:20 | PHYS DOC ---
Past Medical History Past Medical History: Asthma, Other Additional Past Medical Histor: PCOS, PTSD, Scoliosis, tachycardia during Past Surgical History: Cholecystectomy, , Tubal ligation Additional Past Surgical Histo: Right Salphin-oophorectomy Alcohol Use: Rarely Drug Use: None Adult General Chief Complaint Chief Complaint: HEADACHE HPI HPI 33-year-old female presents to ER with complaints of 5 day history of a migraine headache. Patient states she has been taking [id number] Tylenol and her prescribed Fioricet with minimal relief in sxs. She reports she is having photosensitivity, intermittent nausea and vomiting, pressure behind her left eye, and intermittent dizziness. Patient states her symptoms have lasted longer than her typical migraines. She reports she has not had an appointment with Dr. Fonseca in the past 5 days although she does state she called the office denies make an appointment at that time. Patient states she took Tylenol at 9 AM this morning denies taking her Fioricet. She reports last dose of that was yesterday. She denies fever but states she has had the chills. She reports she has had some burning with urination denies other urinary symptoms. Patient states she did eat this morning. Patient states bowel movements have been regular. Patient states she has had partial hysterectomy so LMP was last fall. She reports she had a tubal ligation prior to that. She denies floaters, vision changes, or tinnitus. Review of Systems Review of Systems Constitutional: Denies fever. Reports chills Eyes: Denies change in visual acuity, redness. Reports pressure behind lt eye which is similar to previous HAs HENT: Denies nasal congestion or sore throat [] Respiratory: Denies cough or shortness of breath [] Cardiovascular: No additional information not addressed in HPI [] GI: Denies abdominal pain, bloody stools or diarrhea. Reports intermittent N/V since onset of SIMON : Denies hematuria. Reports in past couple of days she has had intermittent "burning" with urination Musculoskeletal: Denies back pain or joint pain [] Integument: Denies rash or skin lesions [] Neurologic: Denies focal weakness or sensory changes. Reports dizziness with eye movements All other systems were reviewed and found to be within normal limits, except as documented in this note. Current Medications Current Medications Current Medications Medications (Trade) Dose Ordered Sig/Dario Start Time Stop Time Status Last Admin Dose Admin Acetaminophen/ Butalbital/ Caffeine (Fioricet) 1 tab 1X ONCE 10/10/18 16:15 10/10/18 16:16 DC 10/10/18 16:22 1 TAB Dexamethasone Sodium Phosphate (Decadron) 10 mg 1X ONCE 10/10/18 15:15 10/10/18 15:17 DC 10/10/18 15:43 10 MG Diphenhydramine HCl (Benadryl) 25 mg 1X ONCE 10/10/18 15:15 10/10/18 15:17 DC 10/10/18 15:41 25 MG Ketorolac Tromethamine (Toradol 15mg Vial) 15 mg 1X ONCE 10/10/18 16:15 10/10/18 16:16 DC 10/10/18 16:21 15 MG Metoclopramide HCl (Reglan Vial) 10 mg 1X ONCE 10/10/18 15:15 10/10/18 15:17 DC 10/10/18 15:42 10 MG Sodium Chloride 1,000 ml @ 1,000 mls/hr 1X ONCE 10/10/18 15:15 10/10/18 16:14 DC 10/10/18 15:39 1,000 MLS/HR Allergies Allergies Allergies Coded Allergies Type Severity Reaction Last Updated Verified nut - unspecified Allergy Severe 04/10/17 Yes promethazine Allergy Severe 04/10/17 Yes morphine Allergy Intermediate 04/08/18 Yes prochlorperazine Allergy Unknown 10/10/18 Yes Physical Exam Physical Exam Constitutional: Well developed, well nourished, no acute distress, non-toxic appearance. Clear speech HENT: Normocephalic, atraumatic, bilateral external ears normal, oropharynx moist, no oral exudates, nose normal. [] Eyes: 3mm PERRLA, EOMI, no nystagmus, conjunctiva normal, no discharge. [] Neck: Normal range of motion, no tenderness, supple, no stridor. [] Cardiovascular:Heart rate regular rhythm, no murmur [] Lungs & Thorax: Bilateral breath sounds clear to auscultation. Resp. equal and nonlabored Abdomen: Bowel sounds normal, soft, no tenderness Skin: Warm, dry, no erythema, no rash. [] Back: No tenderness, no CVA tenderness. [] Extremities: No tenderness, no cyanosis, no clubbing, ROM intact, no edema. [] Neurologic: Alert and oriented X 3, normal motor function, normal sensory function, no focal deficits noted. [] Psychologic: Affect normal, judgement normal, mood normal. [] Current Patient Data Vital Signs Vital Signs Date Time Temp Pulse Resp B/P (MAP) Pulse Ox O2 Delivery O2 Flow Rate FiO2 10/10/18 17:03 68 16 100 10/10/18 15:13 98.1 111/69 (83) Room Air 98.1 Lab Values Laboratory Tests Test 10/10/18 15:40 10/10/18 15:55 White Blood Count 4.6 x10^3/uL (4.0-11.0) Red Blood Count 3.86 x10^6/uL (3.50-5.40) Hemoglobin 11.9 g/dL (12.0-15.5) L Hematocrit 35.6 % (36.0-47.0) L Mean Corpuscular Volume 92 fL (79-100) Mean Corpuscular Hemoglobin 31 pg (25-35) Mean Corpuscular Hemoglobin Concent 34 g/dL (31-37) Red Cell Distribution Width 13.0 % (11.5-14.5) Platelet Count 197 x10^3/uL (140-400) Neutrophils (%) (Auto) 51 % (31-73) Lymphocytes (%) (Auto) 37 % (24-48) Monocytes (%) (Auto) 8 % (0-9) Eosinophils (%) (Auto) 4 % (0-3) H Basophils (%) (Auto) 1 % (0-3) Neutrophils # (Auto) 2.3 x10^3uL (1.8-7.7) Lymphocytes # (Auto) 1.7 x10^3/uL (1.0-4.8) Monocytes # (Auto) 0.4 x10^3/uL (0.0-1.1) Eosinophils # (Auto) 0.2 x10^3/uL (0.0-0.7) Basophils # (Auto) 0.0 x10^3/uL (0.0-0.2) Sodium Level 139 mmol/L (136-145) Potassium Level 4.5 mmol/L (3.5-5.1) Chloride Level 104 mmol/L (98-107) Carbon Dioxide Level 28 mmol/L (21-32) Anion Gap 7 (6-14) Blood Urea Nitrogen 10 mg/dL (7-20) Creatinine 0.7 mg/dL (0.6-1.0) Estimated GFR (Cockcroft-Gault) 97.6 BUN/Creatinine Ratio 14 (6-20) Glucose Level 82 mg/dL (70-99) Calcium Level 8.5 mg/dL (8.5-10.1) Total Bilirubin 0.2 mg/dL (0.2-1.0) Aspartate Amino Transferase (AST) 16 U/L (15-37) Alanine Aminotransferase (ALT) 16 U/L (14-59) Alkaline Phosphatase 66 U/L (46-116) Total Protein 6.8 g/dL (6.4-8.2) Albumin 3.5 g/dL (3.4-5.0) Albumin/Globulin Ratio 1.1 (1.0-1.7) Lipase 129 U/L (73-393) Urine Collection Type Unknown Urine Color Yellow Urine Clarity Cloudy Urine pH 7.0 Urine Specific [place] 1.010 Urine Protein Negative mg/dL (NEG-TRACE) Urine Glucose (UA) Negative mg/dL (NEG) Urine Ketones (Stick) Negative mg/dL (NEG) Urine Blood Negative (NEG) Urine Nitrite Negative (NEG) Urine Bilirubin Negative (NEG) Urine Urobilinogen Dipstick 1.0 mg/dL (0.2 mg/dL) Urine Leukocyte Esterase Moderate (NEG) Urine RBC Occ /HPF (0-2) Urine WBC 5-10 /HPF (0-4) Urine Squamous Epithelial Cells Many /LPF Urine Bacteria Moderate /HPF (0-FEW) Laboratory Tests 10/10/18 15:40 Laboratory Tests 10/10/18 15:40 Microbiology 10/10/18 Urine Culture - Final, Complete 10/10/18 Urine Culture Result 1 (OVIDIO) - Final, Complete EKG EKG [] Radiology/Procedures Radiology/Procedures [] Course & Med Decision Making Course & Med Decision Making Pertinent Labs reviewed. (See chart for details) 1635: Pt was evaluated in the ER for complaints of 5 day history of headache. She reports history of migraines however this headache has been lasting longer than her typical headache. Patient states she had had burning with urination for the past 2 days so UA was obtained. UA with moderate leukocytes and 5-10 WBCs on micro. Pt was provided IV flds and medications for SIMON with reports of improved SIMON. She remains A&Ox3 with no focal neuro deficits. Discussed test results and UTI. Had discussed CT head for further eval- with improved sxs and UTI dx pt is comfortable with no further tests and home d/c. Discussed with improved sxs would d/c home with Rx for Keflex. Pt encouraged to increase flds- with husb. reporting during discussion pt has had less water intake. Education provided on s&s to return to ER for and d/c instructions were discussed. Pt to f /u with her PCP for re-eval also discussed f/u with her neurologist. Janetteon Disclaimer Dragon Disclaimer This electronic medical record was generated, in whole or in part, using a voice recognition dictation system. Departure Departure Impression: Primary Impression: Headache Additional Impression: Urinary tract infection Disposition: HOME, SELF-CARE Condition: STABLE Referrals: JENNIFER BATES DO (PCP) Patient Instructions: Headache, FAQs, Urinary Tract Infection Additional Instructions: Drink plenty of water. Tylenol as directed on container. Continue your prescribed medications as directed. If symptoms persist follow-up with your primary care physician and/or neurologist. Scripts Cephalexin (KEFLEX) 500 Mg Capsule 1 CAP PO BID, #14 CAP 0 Refills Prov: SHAYNA LEYVA APRN 10/10/18 Problem Qualifiers SHAYNA LEYVA APRN Oct 10, 2018 15:20
[2018-10-10 15:58] LABS: BASO % 1 % (0-3); EOS # 0.2 x10^3/uL (0.0-0.7); EOS % 4 % (0-3); HEMATOCRIT 35.6 % (36.0-47.0); HEMOGLOBIN 11.9 g/dL (12.0-15.5); LYMPH # 1.7 x10^3/uL (1.0-4.8); LYMPH % 37 % (24-48); MEAN CORPUSCULAR HEMOGLOBIN 31 pg (25-35); MEAN CORPUSCULAR HGB CONC 34 g/dL (31-37); MEAN CORPUSCULAR VOLUME 92 fL (79-100); MONO # 0.4 x10^3/uL (0.0-1.1); MONO % 8 % (0-9); NEUT # 2.3 x10^3uL (1.8-7.7); NEUT % 51 % (31-73); PLATELET COUNT 197 x10^3/uL (140-400); RED BLOOD COUNT 3.86 x10^6/uL (3.50-5.40); WHITE BLOOD COUNT 4.6 x10^3/uL (4.0-11.0)
[2018-10-10 16:02] LABS: CALCIUM 8.5 mg/dL (8.5-10.1); CREATININE 0.7 mg/dL (0.6-1.0); GFR 97.6; POTASSIUM 4.5 mmol/L (3.5-5.1)
[2018-10-10 16:08] LABS: ALBUMIN 3.5 g/dL (3.4-5.0); ALBUMIN/GLOBULIN RATIO 1.1 (1.0-1.7); TOTAL BILIRUBIN 0.2 mg/dL (0.2-1.0); TOTAL PROTEIN 6.8 g/dL (6.4-8.2)
[2018-10-10 16:10] LABS: BILIRUBIN,URINE NEGATIVE (NEG); CLARITY,URINE CLOUDY; COLOR,URINE YELLOW; NITRITE,URINE NEGATIVE (NEG); PROTEIN,URINE NEGATIVE (NEG-TRACE)
[2018-10-10] MEDS ORDERED: KETOROLAC 15 MG/ML VIAL. IV ONE (16:15)
[2018-10-10] MEDS ORDERED: BUTALB/APAP/CAFEIN 50/325/40MG TABLET. PO ONE (16:15)
[2018-10-10 16:17] LABS: SQUAMOUS EPITHELIAL CELL,UR MANY /LPF
[2018-10-10 16:20] LABS: BACTERIA,URINE MODERATE /HPF (0-FEW); RBC,URINE OCC /HPF (0-2)
[2018-10-10] MEDS ORDERED: CEPH-264 PO (16:46)
[2018-10-10 17:03] VITALS: BP 112/64
== END 2018-10-10 17:22 | disposition home or self-care (01) ==
LOC: ER 14:37
DX: R51 Headache (principal); N39.0 Urinary tract infection, site not specified; G43.909 Migraine, unspecified, not intractable, without status migrainosus; J45.909 Unspecified asthma, uncomplicated; Z88.5 Allergy status to narcotic agent; Z88.8 Allergy status to other drugs, medicaments and biological substances; Z91.018 Allergy to other foods
CPT/HCPCS: 36415; 80053; 81001; 83690; 85025; 87086; 96361; 96374; 96375; 99284; J1100; J1200; J1885; J2765; J7030

== ENCOUNTER 2019-05-24 17:26 | Emergency (ER) | payer OTHER ==
[~2019-05-24] VITALS: Ht 160 cm; Wt 90.7 kg
[~2019-05-24 17:26] MED LIST changes: +CEPH-264 PO
[2019-05-24 18:00] VITALS: BP 128/79
[2019-05-24] MEDS ORDERED: KETOROLAC 30 MG/ML VIAL. IM STA (18:10)
[2019-05-24] MEDS ORDERED: ORPHENADRINE CITRATE 60 MG/2 ML VIAL. IM ONE (18:15)
--- NOTE | 2019-05-24 18:15 | PHYS DOC ---
Past Medical History Past Medical History: Asthma Additional Past Medical Histor: PTSD, SCOLIOSIS (IZABEL ROSS APRN) Past Surgical History: Cholecystectomy, , Tubal ligation Additional Past Surgical Histo: Right Salphin-oophorectomy (IZABEL ROSS APRN) Alcohol Use: None Drug Use: None (IZABEL ROSS APRN) Adult General Chief Complaint Chief Complaint: LOWER BACK PAIN OR INJURY HPI HPI Patient is a 33 year old female presents to the ER stating that she's been having left-sided back pain has been ongoing for 3 days. She states that the pain is radiating down her left leg. Rates the pain as 10 out of 10 in severity and sharp. (IZABEL ROSS APRN) Review of Systems Review of Systems Constitutional: Denies fever or chills [] Eyes: Denies change in visual acuity, redness, or eye pain [] HENT: Denies nasal congestion or sore throat [] Respiratory: Denies cough or shortness of breath [] Cardiovascular: No additional information not addressed in HPI [] GI: Denies abdominal pain, nausea, vomiting, bloody stools or diarrhea [] : Denies dysuria or hematuria [] Musculoskeletal: Reports back pain. Integument: Denies rash or skin lesions [] Neurologic: Denies headache, focal weakness or sensory changes [] Endocrine: Denies polyuria or polydipsia [] Complete systems were reviewed and found to be within normal limits, except as documented in this note. (IZABEL ROSS APRN) Current Medications Current Medications Current Medications Medications (Trade) Dose Ordered Sig/Dario Start Time Stop Time Status Last Admin Dose Admin Ketorolac Tromethamine (Toradol 30mg Vial) 30 mg 1X STAT 05/24/19 18:10 05/24/19 18:14 DC 05/24/19 18:24 30 MG Orphenadrine Citrate (Norflex) 60 mg 1X ONCE 05/24/19 18:15 05/24/19 18:16 DC 05/24/19 18:24 60 MG (TIFFANIE MAURER MD) Allergies Allergies Allergies Coded Allergies Type Severity Reaction Last Updated Verified nut - unspecified Allergy Severe 04/10/17 Yes promethazine Allergy Severe 04/10/17 Yes morphine Allergy Intermediate 04/08/18 Yes prochlorperazine Allergy Unknown 10/10/18 Yes (TIFFANIE MAURER MD) Physical Exam Physical Exam Constitutional: Well developed, well nourished, no acute distress, non-toxic appearance. [] HENT: Normocephalic, atraumatic, bilateral external ears normal, oropharynx moist, no oral exudates, nose normal. [] Eyes: PERRLA, EOMI, conjunctiva normal, no discharge. [] Neck: Normal range of motion, no tenderness, supple, no stridor. [] Cardiovascular:Heart rate regular rhythm, no murmur [] Lungs & Thorax: Bilateral breath sounds clear to auscultation [] Abdomen: Bowel sounds normal, soft, no tenderness, no masses, no pulsatile masses. [] Skin: Warm, dry, no erythema, no rash. [] Back: Tenderness to left side of lower back. Extremities: No tenderness, no cyanosis, no clubbing, ROM intact, no edema. [] Neurologic: Alert and oriented X 3, normal motor function, normal sensory function, no focal deficits noted. [] Psychologic: Affect normal, judgement normal, mood normal. [] (IZABEL ROSS APRN) Current Patient Data Vital Signs Vital Signs Date Time Temp Pulse Resp B/P (MAP) Pulse Ox O2 Delivery O2 Flow Rate FiO2 05/24/19 18:00 97.7 88 18 128/79 (95) 100 Room Air 97.7 (TIFFANIE MAURER MD) Lab Values Laboratory Tests Test 05/24/19 18:20 Urine Collection Type Unknown Urine Color Yellow Urine Clarity Clear Urine pH 6.0 Urine Specific [place] 1.015 Urine Protein Negative mg/dL (NEG-TRACE) Urine Glucose (UA) Negative mg/dL (NEG) Urine Ketones (Stick) Negative mg/dL (NEG) Urine Blood Negative (NEG) Urine Nitrite Positive (NEG) Urine Bilirubin Negative (NEG) Urine Urobilinogen Dipstick 0.2 mg/dL (0.2 mg/dL) Urine Leukocyte Esterase Moderate (NEG) Urine RBC Rare /HPF (0-2) Urine WBC 11-20 /HPF (0-4) Urine Squamous Epithelial Cells Many /LPF Urine Bacteria Many /HPF (0-FEW) Urine Mucus Mod /LPF (TIFFANIE MAURER MD) Lab Values Laboratory Tests Test 05/24/19 18:20 Urine Collection Type Unknown Urine Color Yellow Urine Clarity Clear Urine pH 6.0 Urine Specific [place] 1.015 Urine Protein Negative mg/dL (NEG-TRACE) Urine Glucose (UA) Negative mg/dL (NEG) Urine Ketones (Stick) Negative mg/dL (NEG) Urine Blood Negative (NEG) Urine Nitrite Positive (NEG) Urine Bilirubin Negative (NEG) Urine Urobilinogen Dipstick 0.2 mg/dL (0.2 mg/dL) Urine Leukocyte Esterase Moderate (NEG) Urine RBC Rare /HPF (0-2) Urine WBC 11-20 /HPF (0-4) Urine Squamous Epithelial Cells Many /LPF Urine Bacteria Many /HPF (0-FEW) Urine Mucus Mod /LPF (IZABEL ROSS APRN) EKG EKG [] (IZABEL ROSS APRN) Radiology/Procedures Radiology/Procedures [] (IZABEL ROSS APRN) Course & Med Decision Making Course & Med Decision Making Pertinent Labs and Imaging studies reviewed. (See chart for details) Will get UA to rule out UTI or kidney stone and give muscle relaxer and Toradol. Patient urine shows leukocytes and nitrates will treat for UTI. (IZABEL ROSS APRN) Course & Med Decision Making Staff Physician Addendum: I was working in the ER during the course of this patient's visit. I was available for consultation as needed, but I was not directly involved in the care of this patient. (TIFFANIE MAURER MD) Dragon Disclaimer Dragon Disclaimer This electronic medical record was generated, in whole or in part, using a voice recognition dictation system. (IZABEL ROSS APRN) Departure Departure Impression: Primary Impression: Urinary tract infection Additional Impression: Sciatica of left side Disposition: 01 HOME, SELF-CARE Condition: STABLE Referrals: REX BARTLETT (PCP) Patient Instructions: Sciatica, Urinary Tract Infection Additional Instructions: Thank you for visiting [facility]. We appreciate you trusting us with your care. If any additional problems come up don't hesitate to return to visit us. Please follow up with your primary care provider so they can plan additional care if needed and know about the problem that you had. If symptoms worsen come back to the Emergency Department. Any concerning symptoms that start such as chest pain, shortness of air, weakness or numbness on one side of the body, running high fevers or any other concerning symptoms return to the ER. You have been prescribed an antibiotic today to help fight your infection. Please take all of the antibiotic as directed. If after 48 hours the infection is not improving, please return for more care. If the infection worsens, return to ER for additional care. Please fill your medications at any pharmacy and follow the prescription instructions. Scripts Cephalexin (KEFLEX) 500 Mg Capsule 1 CAP PO BID for 7 Days, #14 CAP 0 Refills Prov: IZABEL ROSS APRN 05/24/19 Orphenadrine Citrate (ORPHENADRINE CITRATE) 100 Mg Tablet.er 100 MG PO BID PRN for MUSCLE SPASMS for 7 Days, #14 TAB.SR Prov: IZABEL ROSS APRN 05/24/19 Ibuprofen (IBUPROFEN) 400 Mg Tablet 400 MG PO PRN Q6HRS PRN for INFLAMMATION for 10 Days, #40 TAB Prov: IZABEL ROSS APRN 05/24/19 Problem Qualifiers Primary Impression: Urinary tract infection Urinary tract infection type: acute cystitis Hematuria presence: without hematuria Qualified Codes: N30.00 - Acute cystitis without hematuria IZABEL ROSS APRN May 24, 2019 18:15 TIFFANIE MAURER MD May 24, 2019 22:33
[2019-05-24 18:35] LABS: BILIRUBIN,URINE NEGATIVE (NEG); CLARITY,URINE CLEAR; COLOR,URINE YELLOW; NITRITE,URINE POSITIVE (NEG); PROTEIN,URINE NEGATIVE (NEG-TRACE); UROBILINOGEN,URINE 0.2 mg/dL (0.2 mg/dL)
[2019-05-24 18:49] LABS: BACTERIA,URINE MANY /HPF (0-FEW); RBC,URINE RARE /HPF (0-2); SQUAMOUS EPITHELIAL CELL,UR MANY /LPF
[2019-05-24] MEDS ORDERED: CEPH-264 PO (18:59)
[2019-05-24] MEDS ORDERED: ORPH100T PO (18:59)
[2019-05-24] MEDS ORDERED: IBUP-1027 PO (18:59)
== END 2019-05-24 19:18 | disposition home or self-care (01) ==
LOC: ER 17:26
DX: N30.00 Acute cystitis without hematuria (principal); M54.42 Lumbago with sciatica, left side; J45.909 Unspecified asthma, uncomplicated; F43.10 Post-traumatic stress disorder, unspecified; Z90.49 Acquired absence of other specified parts of digestive tract; Z98.51 Tubal ligation status; Z98.890 Other specified postprocedural states; Z90.721 Acquired absence of ovaries, unilateral; Z88.8 Allergy status to other drugs, medicaments and biological substances; Z88.5 Allergy status to narcotic agent; Z91.018 Allergy to other foods
CPT/HCPCS: 81001; 87086; 96372; 99284; J1885; J2360; 87186

== ENCOUNTER 2019-08-18 07:43 | Emergency (ER) | payer OTHER ==
[~2019-08-18] VITALS: Ht 160 cm; Wt 90.9 kg
[~2019-08-18 07:43] MED LIST changes: +IBUP-1027 PO; +ORPH100T PO
[2019-08-18 08:19] LABS: BILIRUBIN,URINE NEGATIVE (NEG); CLARITY,URINE CLOUDY; COLOR,URINE YELLOW; NITRITE,URINE POSITIVE (NEG); PROTEIN,URINE NEGATIVE (NEG-TRACE); UROBILINOGEN,URINE 0.2 mg/dL (0.2 mg/dL)
[2019-08-18 08:40] LABS: BACTERIA,URINE MODERATE /HPF (0-FEW); RBC,URINE 0 /HPF (0-2); SQUAMOUS EPITHELIAL CELL,UR MANY /LPF; WBC,URINE >40 /HPF (0-4)
--- NOTE | 2019-08-18 09:44 | PHYS DOC ---
Past Medical History Past Medical History: Asthma, Migraines Additional Past Medical Histor: PTSD, SCOLIOSIS, PCOS Past Surgical History: Cholecystectomy, , Gastric Bypass, Tubal ligation Additional Past Surgical Histo: Right Salphin-oophorectomy Alcohol Use: Rarely Drug Use: None Adult General Chief Complaint Chief Complaint: FLANK PAIN HPI HPI Patient is a 34 year old female, accompanied by her , who presents to the emergency department with complaints of bilateral flank pain, low back pain, fever, nausea, dysuria, and increased urinary frequency since yesterday. Patient denies any vomiting, diarrhea, hematuria, incontinence, cough, shortness of breath, or abdominal pain. She currently rates her discomfort 8 out of 10 on pain scale and describes it as low back throbbing, she denies any alleviating factors. Patient states she took Tylenol 3 hours ago for treatment of fever. All other ROS is neg unless otherwise noted in HPI. Review of Systems Review of Systems See Above Current Medications Current Medications Current Medications Medications (Trade) Dose Ordered Sig/Dario Start Time Stop Time Status Last Admin Dose Admin Ceftriaxone Sodium (Rocephin Im) 1 gm 1X ONCE 08/18/19 10:15 08/18/19 10:16 08/18/19 10:06 1 GM Ondansetron HCl (Zofran Odt) 4 mg 1X ONCE 08/18/19 09:45 08/18/19 09:46 DC 08/18/19 10:06 4 MG Allergies Allergies Allergies Coded Allergies Type Severity Reaction Last Updated Verified nut - unspecified Allergy Severe 04/10/17 Yes promethazine Allergy Severe 04/10/17 Yes morphine Allergy Intermediate 04/08/18 Yes prochlorperazine Allergy Unknown 10/10/18 Yes Physical Exam Physical Exam See Above Constitutional: Well developed, well nourished, no acute distress, non-toxic appearance obese. [] HENT: Normocephalic, atraumatic, bilateral external ears normal, oropharynx moist, nose normal. [] Eyes: PERRLA, EOMI, conjunctiva normal, no discharge. [] Neck: Normal range of motion, no stridor. [] Cardiovascular:Heart rate regular rhythm, Lungs & Thorax: Respirations even and unlabored, no retractions, no respiratory distress Skin: Warm, dry, no erythema, no rash. [] Back: bilateral CVA tenderness. [] Extremities: No cyanosis, ROM intact, no edema. [] Neurologic: Alert and oriented X 3, no focal deficits noted. [] Psychologic: Affect normal, judgement normal, mood normal. [] Current Patient Data Vital Signs Vital Signs Date Time Temp Pulse Resp B/P (MAP) Pulse Ox O2 Delivery O2 Flow Rate FiO2 08/18/19 08:25 97.4 96 17 124/66 (85) 96 Room Air 97.4 Lab Values Laboratory Tests Test 08/18/19 08:00 08/18/19 08:03 Urine Collection Type Void Urine Color Yellow Urine Clarity Cloudy Urine pH 6.0 Urine Specific [place] 1.015 Urine Protein Negative mg/dL (NEG-TRACE) Urine Glucose (UA) Negative mg/dL (NEG) Urine Ketones (Stick) Negative mg/dL (NEG) Urine Blood Small (NEG) Urine Nitrite Positive (NEG) Urine Bilirubin Negative (NEG) Urine Urobilinogen Dipstick 0.2 mg/dL (0.2 mg/dL) Urine Leukocyte Esterase Large (NEG) Urine RBC 0 /HPF (0-2) Urine WBC >40 /HPF (0-4) Urine Squamous Epithelial Cells Many /LPF Urine Bacteria Moderate /HPF (0-FEW) POC Urine HCG, Qualitative Hcg negative (Negative) EKG EKG [] Radiology/Procedures Radiology/Procedures [] Course & Med Decision Making Course & Med Decision Making Pertinent Labs and Imaging studies reviewed. (See chart for details) Pt is a 34-year-old female who presented to the emergency room with complaints of a fever, nausea, low back pain, and dysuria since yesterday. Her vital signs are stable, patient appears to be in no distress. Patient was given 1 g of IM Rocephin and 1 PO zofran in ER. Prescriptions written for Bactrim, Zofran, and P yridium. The patient was encouraged to increase clear fluids and avoid bladder irritants. Follow-up with her primary care doctor if symptoms persist, return to the ER if symptoms worsen. POC was discussed with Dr. Vyas prior to discharge. Patient verbalized an understanding of home care, medications, follow-up, and return to ED instructions and was in agreement with the plan of care. [] Dragon Disclaimer Dragon Disclaimer This electronic medical record was generated, in whole or in part, using a voice recognition dictation system. Departure Departure Impression: Primary Impression: Acute pyelonephritis Disposition: 01 HOME, SELF-CARE Condition: STABLE Referrals: JAZMÍN HUTCHINS MD (PCP) Patient Instructions: Nausea, Adult, [id number], Pyelonephritis, Adult, [id number] Additional Instructions: Fill prescription(s) and use as directed. Avoid bladder irritants such as caffeine, carbonation, and spicy foods. Increase clear fluids. Follow up with your primary care doctor if symptoms persist, return to the ER if symptoms worsen. Scripts Ondansetron Hcl (ZOFRAN) 4 Mg Tablet 1 TAB PO Q6HRS PRN for NAUSEA/VOMITING for 3 Days, #10 TAB 0 Refills Prov: ELVIS ASHFORD APRN 08/18/19 Phenazopyridine Hcl (PYRIDIUM) 100 Mg Tablet 1 TAB PO TID for urinary discomfort for 3 Days, #9 TAB 0 Refills Prov: ELVIS ASHFORD APRN 20 Sulfamethoxazole/Trimethoprim (BACTRIM DS TABLET) 1 Each Tablet 1 TAB PO BID for 7 Days, #14 TAB 0 Refills Prov: ELVIS ASHFORD APRN 08/18/19 ELVIS ASHFORD APRN Aug 18, 2019 09:44
[2019-08-18] MEDS ORDERED: cefTRIAXone IM 250 MG VIAL IM ONE (09:45)
[2019-08-18] MEDS ORDERED: ONDANSETRON ODT 4 MG TAB.RAPDIS. PO ONE (09:45)
[2019-08-18] MEDS ORDERED: PHEN100T82 PO (10:02)
[2019-08-18] MEDS ORDERED: ONDA4TAB7 PO (10:02)
[2019-08-18] MEDS ORDERED: SULF1TAB24 PO (10:02)
[2019-08-18 10:11] VITALS: BP 123/63
[2019-08-18] MEDS ORDERED: cefTRIAXone IM 1 GM VIAL IM ONE (10:15)
== END 2019-08-18 10:11 | disposition home or self-care (01) ==
LOC: ER 07:43
DX: N10 Acute pyelonephritis (principal); M54.5 Low back pain; R30.0 Dysuria; J45.909 Unspecified asthma, uncomplicated; G43.909 Migraine, unspecified, not intractable, without status migrainosus; F43.10 Post-traumatic stress disorder, unspecified; M41.9 Scoliosis, unspecified; Z90.49 Acquired absence of other specified parts of digestive tract; Z98.890 Other specified postprocedural states; Z98.51 Tubal ligation status; Z88.6 Allergy status to analgesic agent; Z88.8 Allergy status to other drugs, medicaments and biological substances; Z91.018 Allergy to other foods
CPT/HCPCS: 81001; 81025; 87086; 87186; 96372; 99284; J0696; Q0162